=== PATIENT | male | born 1955 | race African-American/Black ===

== ENCOUNTER 2024-06-12 14:36 | Outpatient (AMB) | payer MEDICARE, SELFPAY ==
[2024-06-12 14:38] VITALS: BP 119/64; PULSE 76; O2SAT 98; BMI 23.1
--- NOTE | 2024-06-12 14:38 | MHC.OFFVIS ---
Vital Signs 06/12/24 14:38 Height 6 ft Weight 170 lb BMI 23.1 BP 119/64 Blood Pressure Location Lt brachial Position Sitting Pulse 76 Pulse Source Doppler Pulse Oximetry (%) 98 Oxygen Delivery Method Room Air Intake Visit Reasons: lung nodule Allergies No Known Allergies Allergy (Verified 06/12/24 14:39) HPI HPI lung nodule: Details: 69-year-old gentleman, active 40 pack-year smoker with recent lung cancer screening CT chest showing 4 mm pulmonary nodule referred for pulmonary evaluation. Patient denies any dyspnea on exertion. He denies prior personal of family history of lung disease. He denies exposure to industrial dusts. [facility] Social History (Updated 06/12/24 @ 14:40 by Ellie Hernandez Elizabeth) Patient Tobacco Use Status: Current everyday Tobacco user Tobacco use type: Cigarette Cigarette Packs Per Day: 1 Years Smoked: started at age 20 Review of Systems Const Denies daytime sleepiness, Denies excessive sweating, Denies fatigue, Denies fever(s), Denies lethargy, Denies malaise, Denies night sweats, Denies snoring and Denies weight loss Eyes Denies blurry vision and Denies itchy eyes ENT Denies nasal congestion, Denies post nasal drip, Denies sinus pain, Denies sinus pressure and Denies other ( Thrush) Card Denies chest pain, Denies pedal edema, Denies dyspnea, Denies orthopnea and Denies paroxysmal nocturnal dyspnea Resp Denies cough, Denies hemoptysis, Denies excessive phlegm production, Denies dyspnea, Denies snoring and Denies wheezing GI Denies abdominal pain and Denies heartburn Musc Denies myalgias, Denies arthralgias and Denies joint swelling Skin/Breast Denies rash Neuro Denies memory loss and Denies seizure-like activity Psych Denies abnormal sleep pattern, Denies anxiety and Denies memory loss Endo Denies excessive sweating, Denies fatigue and Denies heat intolerance Josh/Lymph Denies easy bruising Aller/Immun Denies itchy eyes, Denies seasonal rhinorrhea and Denies wheezing Physical Exam Vital Signs: Last Vital Signs Pulse 76 06/12/24 14:38 BP 119/64 06/12/24 14:38 Pulse Ox 98 06/12/24 14:38 Oxygen Delivery Method Room Air 06/12/24 14:38 BMI result Body Mass Index 23.1 Const General: no acute distress and alert Nutritional Appearance: not obese Orientation/consciousness: Other orientation findings ( oriented) HEENT Head: Yes atraumatic Eyes General: appearance normal, both eyes and all related structures Sclerae: sclerae normal EOM: EOMs intact bilaterally Neck Neck: Yes supple Lymphatic: no lymphadenopathy noted Resp Effort & Inspection: normal respiratory effort and no use of accessory muscles Auscultation: clear to auscultation bilaterally Cardio Rate: regular rate Rhythm: regular rhythm Heart sounds: no gallops, no murmurs and no rubs Skin General skin exam: other ( warm) Extrem General: No clubbing, No cyanosis and No edema Assessment & Plan Assessment & Plan (1) Pulmonary nodule: Code(s): R91.1 - Solitary pulmonary nodule Category: Medical (2) Personal history of nicotine dependence: Code(s): Z87.891 - Personal history of nicotine dependence Category: Medical (3) Pulmonary emphysema: Code(s): J43.9 - Emphysema, unspecified Category: Medical Plan Pulmonary emphysema that is clinically silent. No dyspnea on exertion. Underlying from mm nodules noted on lung cancer screening. Will repeat CT chest in 6 months. Orders: Orders CT chest wo IV con 12/03/24 R91.1 - Solitary pulmonary nodule Coding Level of Care Code New Pt Level 4 (63749) Diagnoses Pulmonary nodule R91.1 Personal history of nicotine dependence Z87.891 Pulmonary emphysema J43.9
== END 2024-06-12 15:05 | disposition home or self-care (01) ==
PROVIDERS: PCP Internal Medicine; Visit Provider Internal Medicine Pulmonary Disease
DX: R91.1 Solitary pulmonary nodule (principal); Z87.891 Personal history of nicotine dependence; J43.9 Emphysema, unspecified
CPT/HCPCS: 99204

== ENCOUNTER → 2024-06-12 14:36 | Outpatient (BNVA) | payer MEDICARE, SELFPAY | PROVIDERS: PCP Internal Medicine; Visit Provider Internal Medicine Pulmonary Disease | DX: R91.1 Solitary pulmonary nodule (principal); J43.9 Emphysema, unspecified; Z87.891 Personal history of nicotine dependence | CPT/HCPCS: 99202 ==

== ENCOUNTER 2024-11-23 07:37 | Outpatient (REF) | payer MEDICARE, SELFPAY ==
--- NOTE | ~2024-11-23 | CT_ITS ---
CLINICAL HISTORY: R91.1 - Solitary pulmonary nodule CT chest without contrast Comparison: None Findings: The left lobe of the thyroid is markedly enlarged with retrosternal extension by up to 7.3 cm. The thyroid is heterogeneous in attenuation with nodules measuring up to 2.9 cm with numerous calcifications. The trachea is shifted rightward and mildly narrowed due to the enlarged thyroid. No lymphadenopathy. Unremarkable heart. Normal size thoracic aorta with a mild amount of calcified atherosclerotic disease. Left lower lobe subpleural nodule measuring 4 mm. No pneumothorax or pleural effusion. No acute osseous or soft tissue abnormality. No acute pathology in the imaged portion of the upper abdomen. Impression: Pulmonary nodule measuring 4mm, likely infectious/inflammatory. No follow-up is required in low risk individuals. High risk individuals have the option of a 1 year follow-up chest CT. Multinodular thyroid goiter with retrosternal extension. This document has been electronically signed by: Christal Palumbo MD on 11/23/2024 21:27:22
== END 2024-11-23 07:38 | disposition home or self-care (01) ==
LOC: HO.CT 07:37
PROVIDERS: PCP Internal Medicine; Visit Provider Internal Medicine Pulmonary Disease
DX: R91.1 Solitary pulmonary nodule (principal)
CPT/HCPCS: 71250

== ENCOUNTER → 2024-11-23 07:42 | Outpatient (BNV) | payer MEDICARE, SELFPAY | PROVIDERS: PCP Internal Medicine; Visit Provider Radiology Diagnostic Radiology | DX: R91.1 Solitary pulmonary nodule (principal) | CPT/HCPCS: 71250 ==

== ENCOUNTER 2024-11-24 09:55 | Outpatient (AMB) | payer MEDICARE, SELFPAY ==
[2024-11-24 10:00] VITALS: BP 138/80; PULSE 100; O2SAT 100; BMI 23.9
--- NOTE | 2024-11-24 10:00 | A.OFFVIS_ITS ---
Vital Signs 11/24/24 10:00 Height 6 ft Weight 176 lb 5.917 oz BMI 23.9 BP 138/80 Blood Pressure Location Rt brachial Position Sitting Pulse 100 Pulse Source Pulse Oximeter Pulse Oximetry (%) 100 Oxygen Delivery Method Room Air Intake Visit Reasons: lung nodule Allergies No Known Allergies Allergy (Verified 11/24/24 10:03) Medication List - Last Reconciled 11/24/24 by Vesta Mariscal, [employer] carvedilol 12.5 mg PO BID chlorthalidone 25 mg PO DAILY latanoprost 0.005% drps ophthalmic (eye) HPI HPI lung nodule: Details: 69-year-old gentleman, active 40 pack-year smoker with recent lung cancer screening CT chest showing 4 mm pulmonary nodule referred for pulmonary evaluation. Patient denies any dyspnea on exertion. He denies prior personal of family history of lung disease. He denies exposure to industrial dusts. He had his six-month follow-up CT chest that showed stable left lower lobe pulmonary nodule. He continues to deny any dyspnea on exertion or wheezing. [facility] Social History (Updated 06/12/24 @ 14:40 by Ellie Hernandez [facility]) Patient Tobacco Use Status: Current everyday Tobacco user Tobacco use type: Cigarette Cigarette Packs Per Day: 1 Years Smoked: started at age 20 Review of Systems Const Denies daytime sleepiness, Denies excessive sweating, Denies fatigue, Denies fever(s), Denies lethargy, Denies malaise, Denies night sweats, Denies snoring and Denies weight loss Eyes Denies blurry vision and Denies itchy eyes ENT Denies nasal congestion, Denies post nasal drip, Denies sinus pain, Denies sinus pressure and Denies other ( Thrush) Card Denies chest pain, Denies pedal edema, Denies dyspnea, Denies orthopnea and Denies paroxysmal nocturnal dyspnea Resp Denies cough, Denies hemoptysis, Denies excessive phlegm production, Denies dyspnea, Denies snoring and Denies wheezing GI Denies abdominal pain and Denies heartburn Musc Denies myalgias, Denies arthralgias and Denies joint swelling Skin/Breast Denies rash Neuro Denies memory loss and Denies seizure-like activity Psych Denies abnormal sleep pattern, Denies anxiety and Denies memory loss Endo Denies excessive sweating, Denies fatigue and Denies heat intolerance Josh/Lymph Denies easy bruising Aller/Immun Denies itchy eyes, Denies seasonal rhinorrhea and Denies wheezing Physical Exam Vital Signs: Last Vital Signs Pulse 100 11/24/24 10:00 BP 138/80 11/24/24 10:00 Pulse Ox 100 11/24/24 10:00 Oxygen Delivery Method Room Air 11/24/24 10:00 BMI result Body Mass Index 23.9 Const General: no acute distress and alert Nutritional Appearance: not obese Orientation/consciousness: Other orientation findings ( oriented) HEENT Head: Yes atraumatic Eyes General: appearance normal, both eyes and all related structures Sclerae: sclerae normal EOM: EOMs intact bilaterally Neck Neck: Yes supple Lymphatic: no lymphadenopathy noted Resp Effort & Inspection: normal respiratory effort and no use of accessory muscles Auscultation: clear to auscultation bilaterally Cardio Rate: regular rate Rhythm: regular rhythm Heart sounds: no gallops, no murmurs and no rubs Skin General skin exam: other ( warm) Extrem General: No clubbing, No cyanosis and No edema Assessment & Plan Assessment & Plan (1) Pulmonary emphysema: Code(s): J43.9 - Emphysema, unspecified Category: Medical Plan: Essentially asymptomatic. Continue on as needed albuterol MDI (2) Personal history of nicotine dependence: Code(s): Z87.891 - Personal history of nicotine dependence Category: Medical Plan: Results of follow-up CT chest reviewed, stable left lower lobe pulmonary nodule. Continue with yearly screening, next in November of 2025. Orders: Orders CT lung screening 11/23/25 Z87.891 - Personal history of nicotine dependence Medications: New albuterol sulfate 90 mcg/actuation 2 puffs inhalation Q4-6H PRN 1 ea 1RF shortness of breath or wheezing Coding Level of Care Code Est Pt Level 4 (19433) Diagnoses Pulmonary emphysema J43.9 Personal history of nicotine dependence Z87.891
== END 2024-11-24 10:11 | disposition home or self-care (01) ==
PROVIDERS: PCP Internal Medicine; Visit Provider Internal Medicine Pulmonary Disease
DX: J43.9 Emphysema, unspecified (principal); Z87.891 Personal history of nicotine dependence
CPT/HCPCS: 99214

== ENCOUNTER → 2024-11-24 09:55 | Outpatient (BNVA) | payer MEDICARE, SELFPAY | PROVIDERS: PCP Internal Medicine; Visit Provider Internal Medicine Pulmonary Disease | DX: J43.9 Emphysema, unspecified (principal); Z87.891 Personal history of nicotine dependence | CPT/HCPCS: 99212 ==